=== PATIENT | female | born 1965 | race Caucasian/White ===

== ENCOUNTER 2023-12-05 08:51 | Emergency (ER) | payer MEDICAID, OTHER ==
[~2023-12-05] VITALS: Ht 170.2 cm; Wt 84.7 kg
[~2023-12-05 08:51] MED LIST: ALPR-624 PO; DIAZ5TAB PO; HYDR-4353 PO; ONDA8TAB13 PO; PANT-47 PO; PER10325T PO; QUET-1 PO
[2023-12-05 08:59] VITALS: BP 158/92; PULSE 102; RESP 18; TEMP 97.3; O2SAT 98
[2023-12-05] MEDS ORDERED: CLIN-97 PO (09:35)
== END 2023-12-05 09:54 | disposition home or self-care (01) ==
LOC: ER 08:52
DX: K04.7 Periapical abscess without sinus (principal); J44.9 Chronic obstructive pulmonary disease, unspecified; G89.29 Other chronic pain; F41.9 Anxiety disorder, unspecified; F32.A Depression, unspecified; Z90.49 Acquired absence of other specified parts of digestive tract; Z90.710 Acquired absence of both cervix and uterus; Z98.51 Tubal ligation status; Z88.8 Allergy status to other drugs, medicaments and biological substances
CPT/HCPCS: 99283